=== PATIENT | female | born 1970 | race Caucasian/White ===

== ENCOUNTER 2016-04-18 23:14 | Emergency (ER) | payer BC ==
[2016-04-18 23:23] VITALS: BMI 20.9
--- NOTE | 2016-04-19 00:12 | EDPRACDOC ---
- General Information Chief Complaint: Female Urogenital Problems Stated Complaint: VAGINAL PAIN Time Seen by Provider: 04/18/16 23:50 Information Source: Patient Home Medications: Home Medications Meloxicam 7.5 mg PO BID 04/18/16 Phenazopyridine HCl [Pyridium] 1 tab PO TID 04/18/16 Sulfamethoxazole/Trimethoprim [Sulfamethoxazole-Tmp Ds Tablet] 1 each PO BID 02/22 Gabapentin [Neurontin] 300 mg PO TID #60 capsule 04/19/16 Oxycodone Immediate Release [Oxycodone Immediate Release (OxyIR)] 5 - 15 mg PO Q4H PRN #30 tab 04/19/16 Valacyclovir HCl [Valtrex] 1,000 mg PO BID #20 caplet 04/19/16 Valacyclovir HCl [Valtrex] 500 mg PO BID #6 tablet 04/19/16 Allergies/Adverse Reactions: Allergies Allergy/AdvReac Type Severity Reaction Status Date / Time No Known Allergies Allergy Verified 04/18/16 23:32 - History of Present Illness Onset: today HPI: DYSURIA, URGENCY, FREQUENCY FOR SEVERAL DAYS SEEN IN URGENT CARE PLACED OWN BACTRIM AND PYRIDIUM FOR UTI. TODAY SHE DEVELOPED SEVERE PAIN IN HER PERINEAL AREA, CRUSTED LESIONS SINCE, STATES SHE HAS A TEAR THERE. HAS A COLD SORE, PERFORMED ORAL SEX SEVERAL DAYS AGO. NEVER HAD AN OCCURENCE LIKE THIS BEFORE. Symptoms Started: Spontaneous Relevant History: Reports: Sexually Active Vaginal Lesions: Reports: Other ("TEAR") Vaginal Discharge: Reports: Clear Pain Severity: Moderate Pruritis Severity: Mild Associated Signs & Symptoms: Reports: Vaginal Discharge. Denies: Fever, Dysuria , Frequency, Urgency, Vaginal Bleeding ED Past Medical History - History Reviewed Yes Nurses notes reviewed and agree except as marked - Patient Medical History Psychological History: Denies: Depression Surgical History: Reports: Appendectomy, Tonsillectomy/Adnoidectomy. Denies: Hysterectomy - Social Medical History Smoking Status: Never smoker ETOH: None Substance Abuse: None Lives With: Family Lives In: Home EDM Review of Systems - Review of Systems ROS Negative Except as Marked: Yes All systems reviewed and were negative except as marked - Physical Exam Constitutional: No apparent distress, Alert Last recorded Vital Signs: Last Vital Signs Temp 98.5 F 04/18/16 23:19 Pulse 87 04/18/16 23:19 Resp 18 04/18/16 23:19 BP 119/58 L 04/18/16 23:19 Pulse Ox 99 04/18/16 23:19 Oxygen Pulse Oxygen Saturation 99 O2 Device Room Air Oxygen Flow Rate Fraction of Inspired Oxygen ( FIO2) - HEENT Oropharynx: Normal - Neurologic Memory Impaired: Normal Motor Function: Normal Mood Description: Normal, Appropriate Thought: Coherent ED Vaginal Exam External: Rash (DIFFUSE CLEAR VESICULAR LESIONS ON A RED BASE. SOME OF CRUSTED. EXQUISITELY TENDER TO PALPATION. DIFFUSE VULVAR LOWER SOFT TISSUE SWELLING. ALL CONSISTENT WITH PRIMARY HERPES) Vaginal Exam: Rash Vaginal Lesions: Vesicles Vaginal Discharge: Clear - Departure Disposition: Home Condition: Stable Final Diagnosis: Primary genital herpes simplex infection Instructions: Genital Herpes Simplex (ED) Education/Counseling Given To: Patient Education/Counseling Given Regarding: Diagnosis, Treatment, Prognosis Referrals: Nav Rebolledo MD [Primary Care Provider] - As Needed Prescriptions: Gabapentin [Neurontin] 300 mg PO TID #60 capsule Oxycodone Immediate Release [Oxycodone Immediate Release (OxyIR)] 5 - 15 mg PO Q4H PRN #30 tab PRN Reason: Pain Valacyclovir HCl [Valtrex] 1,000 mg PO BID #20 caplet Valacyclovir HCl [Valtrex] 500 mg PO BID #6 tablet
[2016-04-19] MEDS ORDERED: VALACYCLOVIR HCL 500 MG CAPLET PO ONE (01:14)
[2016-04-19] MEDS ORDERED: OXYCODONE HCL 5 MG TABLET PO ONE (01:14)
[2016-04-19 01:40] VITALS: BP 120/61; PULSE 88; TEMP 98.6
[2016-04-19] MEDS ORDERED: LIDOCAINE 2% VISCOUS ORAL 15 ML PO ONE (01:46)
== END 2016-04-19 01:38 | disposition home or self-care (01) ==
LOC: ED 23:14
DX: A60.00 Herpesviral infection of urogenital system, unspecified (principal)
CPT/HCPCS: 87529; 99283; J2001; J3490